=== PATIENT | male | born 2000 | race Hispanic/Latino ===

== ENCOUNTER 2021-07-07 10:14 | Emergency (ER) | payer OTHER ==
[~2021-07-07] VITALS: Ht 170.2 cm; Wt 77.3 kg
[2021-07-07 12:10] VITALS: BP 129/67
== END 2021-07-07 12:10 | disposition home or self-care (01) ==
LOC: M ED 10:14
DX: R22.41 Localized swelling, mass and lump, right lower limb (principal)